=== PATIENT | male | born 1960 | race Caucasian/White ===

== ENCOUNTER 2021-07-30 19:55 | Emergency (ER) | payer SELFPAY ==
--- NOTE | ~2021-07-30 | XR_ITS ---
XR hand RT min 3V 07/30/2021 20:46 Indication: Pain and swelling of the right hand. Procedure: 3 views right hand Comparison: No prior studies for comparison. Findings: There is advanced osteoarthritis of the first carpal metacarpal joint. There is mild polyar ticular osteoarthritis of the first MCP and IP joints. There is mild soft tissue swelling overlying t he first metacarpal. No acute fracture or traumatic malalignment. Impression: 1: Polyarticular osteoarthritis of the first digit. Reviewed, dictated and finalized at location A. Impression: 1: Polyarticular osteoarthritis of the first digit.
[2021-07-30 19:59] VITALS: BP 156/88; PULSE 109; RESP 20; TEMP 37.3; O2SAT 97
--- NOTE | 2021-07-30 20:38 | ED.SKABFB ---
HPI - Skin/Abscess/Foreign Bdy General Chief complaint: Skin/Abscess/Foreign Body Stated complaint: skin infection Time Seen by Provider: 07/30/21 20:12 History of Present Illness HPI narrative: 60-year-old male presents the emergency room for evaluation of multiple abscesses. Patient states that he noticed some abscesses to his scalp with purulent drainage. Patient states he also is with scab over and 2 to 3 days. Patient states that he noticed these for approximately 3 to 4 weeks. Patient is now complaining that these ulcers are now appearing on his face, his right hand, left forearm, and left leg. Patient states that he has never experienced these wounds before. Patient denies environmental exposure. Related Data Allergies Allergy/AdvReac Type Severity Reaction Status Date / Time No Known Allergies Allergy Mild Verified 07/30/21 20:09 Review of Systems Review of Systems: CONSTITUTIONAL: Denies fever, chills, or sweats. EYES: Denies visual changes, redness, or discharge. ENT: Denies rhinorrhea, congestion, sore throat, or otalgia. CARDIOVASCULAR: Denies chest pain, palpitations, or edema. RESPIRATORY: Denies cough or dyspnea. GASTROINTESTINAL: Denies abdominal pain, nausea, vomiting, or diarrhea. GENITOURINARY: Denies dysuria or hematuria. SKIN: Reports multiple ulcers MUSCULOSKELETAL: Denies back pain, joint pain, or myalgia. NEUROLOGIC: Denies headache, numbness, dizziness, or weakness. PSYCHIATRIC: Denies anxiety or depression. Exam Narrative: GENERAL: Well-appearing, well-nourished, and in no acute distress. HEAD: Normocephalic, atraumatic. EYES: PERRLA and EOMI. CHEST: Clear to auscultation. No respiratory distress. No wheezes rales or rhonchi HEART: Regular rate and rhythm. No murmur heard. Normal peripheral pulses. ABDOMEN: Soft, nontender, nondistended, normal active bowel sounds. EXTREMITIES: Normal range of motion. No edema. SKIN: Multiple erythematous circular lesions located on the scalp, face, left forearm, and left anterior sy with a centralized ulcerated core. Left hand: Third and second finger erythematous and swelling noted, abscess noted to the thumb draining purulent drainage NEURO: No focal deficits. Alert and oriented x3. PSYCH: Normal mood and affect. Course Vital Signs Vital signs: Vital Signs Temperature 37.3 C 07/30/21 19:59 Pulse Rate 109 H 07/30/21 19:59 Respiratory Rate 20 07/30/21 19:59 Blood Pressure 156/88 H 07/30/21 19:59 Pulse Oximetry 97 07/30/21 19:59 Oxygen Delivery Room Air 07/30/21 19:59 Temperature 37.3 C 07/30/21 19:59 Pulse Rate 87 07/30/21 22:09 Respiratory Rate 16 07/30/21 22:09 Blood Pressure 134/88 07/30/21 22:09 Pulse Oximetry 97 07/30/21 22:09 Oxygen Delivery Room Air 07/30/21 19:59 MDM - Skin/Abscess/Foreign Bdy Lab Data Result diagrams: 07/30/21 21:06 07/30/21 21:06 Labs: Lab Results 07/30/21 07/30/21 07/30/21 Range/Units 21:06 21:06 21:06 WBC 18.0 H (4.5-10.0) K/mm3 RBC 4.15 L (4.6-6.20) M/mm3 Hgb 13.6 L (14.0-18.0) g/dL Hct 40.0 L (42.0-52.0) % MCV 96.4 (80-100) fl MCH 32.8 (26-34) pg MCHC 34.0 (32-36) g/dl RDW 13.6 (11.5-14.5) % Plt Count 389 H (150-375) k/mm3 MPV 8.9 (7.4-10.4) fl Immature Gran % (Auto) 0.4 (0-0.5) % Neut % (Auto) 84.1 H (45.5-73.1) % Lymph % (Auto) 9.0 L (18.3-44.2) % [place] % (Auto) 5.0 (2.6-8.5) % Eos % (Auto) 1.1 (0-4.4) % Baso % (Auto) 0.4 (0.2-1.2) % Lymph # (Auto) 1.61 (0.9-3.2) K/mm3 [place] # (Auto) 0.9 H (0.1-0.6) K/mm3 Eos # (Auto) 0.2 (0-0.3) K/mm3 Baso # (Auto) 0.1 (0.0-0.1) K/mm3 Abs Immat Gran (auto) 0.08 H (0.00-0.031) K/mm3 Absolute Neuts (auto) 15.1 H (1.3-6.7) K/mm3 Absolute Nucleated RBC 0.0 (0.0-0.012) K/mm3 Nucleated RBC % 0.0 (0.0-0.2) % Sodium 137 (137-145) mmol/L Potassium 3.8 (3.4-5.0) mmol/L [place]
[2021-07-30 21:33] LABS: Basophils Absolute Auto 0.1 K/mm3 (0.0-0.1); Basophils Percent Auto 0.4 % (0.2-1.2); Eosinophils Absolute Auto 0.2 K/mm3 (0-0.3); Eosinophils Percent Auto 1.1 % (0-4.4); Hemoglobin 13.6 g/dL (14.0-18.0); Immature Granulocyte Absolute 0.08 K/mm3 (0.00-0.031); Immature Granulocyte Percent A 0.4 % (0-0.5); Lymphocytes Absolute Auto 1.61 K/mm3 (0.9-3.2); Mean Corpuscular Hemoglobin 32.8 pg (26-34); Mean Corpuscular Volume 96.4 fl (80-100); Mean Platelet Volume 8.9 fl (7.4-10.4); Monocytes Absolute Auto 0.9 K/mm3 (0.1-0.6); Neutrophils Absolute Auto 15.1 K/mm3 (1.3-6.7); Neutrophils Percent Auto 84.1 % (45.5-73.1); Platelet Count Result 389 k/mm3 (150-375); Red Blood Count 4.15 M/mm3 (4.6-6.20); Red Cell Distribution Width 13.6 % (11.5-14.5)
[2021-07-30 21:34] LABS: Alanine Aminotransferase 25 U/L (6-50); Albumin Level 4.3 g/dL (3.5-5.1); Alkaline Phosphatase 139 U/L (38-126); Anion Gap 6 mmol/L (8-16); Aspartate Amino Transferase 36 U/L (17-59); Bilirubin,Total 0.3 mg/dL (0.2-1.3); Blood Urea Nitrogen 16 mg/dL (9-20); Calcium 8.7 mg/dL (8.4-10.2); Carbon Dioxide 28 mmol/L (22-30); Chloride 103 mmol/L (98-107); Estimated CRCL calculation 85 ml/min; Estimated Glomerular Filt Rate > 60; Glucose 93 mg/dL (65-110); Potassium 3.8 mmol/L (3.4-5.0); Sodium 137 mmol/L (137-145)
[2021-07-30] MEDS: CLINDAMYCIN 600 MG/D5W 50 ML 600 MG/50 ML PIGGYBACK 100 MG IVPB (22:05)
[2021-07-30 22:09] VITALS: BP 134/88; PULSE 87; RESP 16; O2SAT 97
== END 2021-07-30 22:45 | disposition home or self-care (01) ==
PROVIDERS: Emergency Provider Nurse Practitioner Family
DX: L02.811 Cutaneous abscess of head [any part, except face] (principal)
CPT/HCPCS: 36415; 73130; 80053; 83605; 85025; 87070; 87077; 87147; 87186; 87205; 96365; 99284